=== PATIENT | female | born 1970 | race Caucasian/White ===

== ENCOUNTER 2022-08-09 10:56 | Emergency (ER) | payer MEDICAID ==
[~2022-08-09] VITALS: Ht 167.6 cm; Wt 71.2 kg
[2022-08-09 13:12] VITALS: BP 152/85
[2022-08-09] MEDS ORDERED: AZITTAB PO (15:00)
[2022-08-09] MEDS ORDERED: PROM1SOL4 PO (15:00)
[2022-08-09] MEDS ORDERED: BENZ1LOZ3 MT (15:00)
== END 2022-08-09 15:13 | disposition home or self-care (01) ==
LOC: ER 10:56
DX: J06.9 Acute upper respiratory infection, unspecified (principal); K21.9 Gastro-esophageal reflux disease without esophagitis; E78.5 Hyperlipidemia, unspecified; F17.210 Nicotine dependence, cigarettes, uncomplicated; Z98.51 Tubal ligation status; Z88.6 Allergy status to analgesic agent

== ENCOUNTER 2023-01-08 10:38 | Emergency (ER) | payer MEDICAID ==
[~2023-01-08] VITALS: Ht 167.6 cm; Wt 68.0 kg
[~2023-01-08 10:38] MED LIST: AZITTAB PO; BENZ1LOZ12 MT; PROM1SOL4 PO
[2023-01-08 11:13] VITALS: BP 178/88; PULSE 98; RESP 18; O2SAT 98
[2023-01-08] MEDS ORDERED: PRED20TA2 PO (11:14)
[2023-01-08] MEDS ORDERED: AUG875T PO (11:14)
== END 2023-01-08 11:18 | disposition home or self-care (01) ==
LOC: ER 10:38
DX: J01.90 Acute sinusitis, unspecified (principal); H66.91 Otitis media, unspecified, right ear; F41.9 Anxiety disorder, unspecified; F32.9 Major depressive disorder, single episode, unspecified; K21.9 Gastro-esophageal reflux disease without esophagitis; E78.5 Hyperlipidemia, unspecified; F17.210 Nicotine dependence, cigarettes, uncomplicated; Z98.890 Other specified postprocedural states; Z79.899 Other long term (current) drug therapy

== ENCOUNTER 2023-10-28 18:50 | Emergency (ER) | payer MEDICAID ==
[~2023-10-28] VITALS: Ht 167.6 cm; Wt 76.3 kg
[~2023-10-28 18:50] MED LIST changes: +AUG875T PO; +PRED20TA2 PO
[2023-10-28 21:38] VITALS: BP 151/89; PULSE 91; RESP 16; TEMP 97.9; O2SAT 97
== END 2023-10-28 21:43 | disposition home or self-care (01) ==
LOC: ER 18:58
DX: S80.01XA Contusion of right knee, initial encounter (principal); K21.9 Gastro-esophageal reflux disease without esophagitis; E78.5 Hyperlipidemia, unspecified; F17.210 Nicotine dependence, cigarettes, uncomplicated; R60.0 Localized edema; Z98.51 Tubal ligation status; W18.09XA Striking against other object with subsequent fall, initial encounter; Y93.89 Activity, other specified; Y92.89 Other specified places as the place of occurrence of the external cause; Y99.8 Other external cause status
CPT/HCPCS: 73562

== ENCOUNTER 2023-11-02 20:31 | Inpatient (IN) | payer MEDICAID ==
[~2023-11-02] VITALS: Ht 167.6 cm; Wt 77.5 kg
[2023-11-02] MEDS: ACETAMINOPHEN 325 MG TAB PO ONE (20:53)
[2023-11-02] MEDS: SODIUM CHLORIDE 0.9% 1,000 ML IV ONE (21:08)
[2023-11-02 21:40] LABS: Basophils # (auto) 0 10 ^3/uL (0-0.2); Basophils % (auto) 0.3 % (0.0-2.0); Eosinophils # (auto) 0 10 ^3/uL (0-0.8); Hematocrit 25.5 % (36.0-46.0); Hemoglobin 8.6 g/dL (12.2-16.2); Lymphocytes # (auto) 1.1 10 ^3/uL (0.4-5.4); Lymphocytes % (auto) 25.8 % (10.0-50.0); Mean Corpuscular Hemoglobin 28.9 pg (28.0-32.0); Mean Corpuscular Hgb Conc. 33.6 g/dL (32.0-36.0); Mean Corpuscular Volume 86.1 fL (80.0-100.0); Monocytes # (auto) 0.6 10 ^3/uL (0-1.3); Monocytes % (auto) 14.5 % (0.0-12.0); Neutrophils # (auto) 2.6 10 ^3/uL (1.6-8.6); Neutrophils % (auto) 59.4 % (37.0-80.0); Nucleated Red Blood Cells % 0.1 %; Red Blood Cells 2.96 10^6/uL (4.0-5.20); Red Cell Distribution Width 13.4 % (11.8-14.3); White Blood Cell 4.4 10^3/uL (4.4-10.8)
[2023-11-02 21:55] LABS: Alanine Aminotransferase 22 U/L (7-40); Albumin 3.8 g/dL (3.2-4.8); Alkaline Phosphatase 83 U/L (46-116); Anion Gap 10 (5-15); Aspartate Aminotransferase 16 U/L (13-40); BUN/Creatinine Ratio 10.4 (10.0-20.0); Bilirubin, Total 0.5 mg/dL (0.2-1.0); Blood Urea Nitrogen 10 mg/dL (9-23); Calcium 7.8 mg/dL (8.7-10.4); Carbon Dioxide 23 mmol/L (20-30); Chloride 104 mmol/L (98-107); Glucose 104 mg/dL (74-106); Potassium 3.1 mmol/L (3.5-5.1); Sodium 137 mmol/L (136-145); Total Protein 6.1 g/dL (5.7-8.2)
[2023-11-02 22:34] LABS: Urine Bacteria None Seen /hpf (None Seen)
[2023-11-02 22:56] LABS: Urine Blood Negative /uL (Negative); Urine Clarity Turbid (Clear); Urine Color Light-Yellow (Yellow); Urine Mucus FEW (None Seen); Urine Protein, UAD TRACE (Negative); Urine Specific Gravity 1.018 (1.001-1.035); Urine Urobilinogen Normal (Negative); Urine WBC 392 /hpf (0 - 5)
[2023-11-03] VITALS (7 sets, daily range): BP systolic 113–142; BP diastolic 67–78; PULSE 69–99; RESP 18–20; TEMP 98.4–99; O2SAT 92–98
[2023-11-03] MEDS: cefTRIAXone 1GM/50ML D5W 50 ML IV ONE (01:09)
[2023-11-03] MEDS: IOHEXOL 350 MG/ML 100ML IJ ONE (02:47)
[2023-11-03] MEDS ORDERED: NITROGLYCERIN 0.4 MG SL TAB SL PRN (03:00)
[2023-11-03] MEDS ORDERED: ONDANSETRON HCL 4 MG/2 ML VIAL IV PRN (03:00)
[2023-11-03] MEDS: POTASSIUM CHL 20 Meq TABLET PO ONE ×2 (03:11→09:32)
[2023-11-03] MEDS: HYDROcodone-ACET 5/325MG TAB PO PRN (04:47)
[2023-11-03] MEDS: ACETAMINOPHEN 325 MG TAB PO PRN (08:01)
[2023-11-03 10:13] LABS: Basophils # (auto) 0 10 ^3/uL (0-0.2); Eosinophils # (auto) 0 10 ^3/uL (0-0.8); Eosinophils % (auto) 0.1 % (0.0-7.0); Hemoglobin 8.3 g/dL (12.2-16.2); Lymphocytes # (auto) 1.2 10 ^3/uL (0.4-5.4); Monocytes # (auto) 0.5 10 ^3/uL (0-1.3)
[2023-11-03] MEDS: LACTULOSE 20Gm/30ML SOLN PO STA (10:14)
[2023-11-03 10:18] LABS: Basophils % (auto) 0.6 % (0.0-2.0); Hematocrit 25.1 % (36.0-46.0); Lymphocytes % (auto) 37.7 % (10.0-50.0); Mean Corpuscular Hemoglobin 28.5 pg (28.0-32.0); Mean Corpuscular Hgb Conc. 33.1 g/dL (32.0-36.0); Monocytes % (auto) 14.8 % (0.0-12.0); Neutrophils # (auto) 1.5 10 ^3/uL (1.6-8.6); Neutrophils % (auto) 46.8 % (37.0-80.0); Red Blood Cells 2.92 10^6/uL (4.0-5.20); Red Cell Distribution Width 13.7 % (11.8-14.3); White Blood Cell 3.3 10^3/uL (4.4-10.8)
[2023-11-03 10:34] LABS: % Iron Saturation 10.3 % (15-50)
[2023-11-03 10:36] LABS: Alanine Aminotransferase 26 U/L (7-40); Alkaline Phosphatase 82 U/L (46-116); Anion Gap 8 (5-15); Aspartate Aminotransferase 24 U/L (13-40); Blood Urea Nitrogen 9 mg/dL (9-23); Calcium 8.7 mg/dL (8.7-10.4); Carbon Dioxide 27 mmol/L (20-30); Chloride 103 mmol/L (98-107); Glucose 120 mg/dL (74-106); Magnesium 1.9 mg/dL (1.6-2.6); Potassium 3.7 mmol/L (3.5-5.1); Sodium 138 mmol/L (136-145); Total Protein 5.9 g/dL (5.7-8.2)
[2023-11-03 10:57] LABS: Bilirubin, Total 0.4 mg/dL (0.2-1.0)
[2023-11-03 11:33] LABS: Rapid Influenza A Negative (Negative); Rapid Influenza B Negative (Negative)
[2023-11-03 11:35] LABS: COVID19 ANTIGEN SOFIA FIA POSITIVE (NEGATIVE)
[2023-11-03] MEDS: SODIUM CHLORIDE 0.9% 1,000 ML IV SCH (13:30)
[2023-11-03] MEDS ORDERED: MORPHINE SULFATE INJ 2 MG/ml SYRG IV PRN (13:30)
[2023-11-03] MEDS: MORPHINE SULFATE INJ 2 MG/ml SYRG IV PRN (14:18)
[2023-11-03] MEDS ORDERED: ALPR0.5T PO (15:41)
[2023-11-03] MEDS ORDERED: MAGNTAB17 PO (15:42)
[2023-11-03] MEDS ORDERED: PERCOT PO (15:42)
[2023-11-03] MEDS ORDERED: ENOXAPARIN SOD 40 MG/0.4 ML SYRINGE SC STA (18:32)
[2023-11-03] MEDS: MELATONIN 5 MG TAB PO ONE (22:12)
[2023-11-04 01:07] VITALS: BP 139/56; PULSE 86; RESP 19; TEMP 98.6; O2SAT 95
[2023-11-04] MEDS: cefTRIAXone 1GM/50ML D5W 50 ML IV SCH (01:58)
[2023-11-04 05:00] VITALS: BP 132/80; PULSE 87; TEMP 98.5; O2SAT 90
[2023-11-04 06:38] LABS: Chloride 103 mmol/L (98-107); Potassium 3.9 mmol/L (3.5-5.1); Sodium 136 mmol/L (136-145)
[2023-11-04 06:39] LABS: Anion Gap 7 (5-15); Carbon Dioxide 26 mmol/L (20-30)
[2023-11-04 06:40] LABS: Basophils # (auto) 0 10 ^3/uL (0-0.2); Calcium 8.9 mg/dL (8.7-10.4); Eosinophils # (auto) 0 10 ^3/uL (0-0.8); Eosinophils % (auto) 0.2 % (0.0-7.0); Hemoglobin 8.3 g/dL (12.2-16.2); Lymphocytes # (auto) 0.9 10 ^3/uL (0.4-5.4); Monocytes # (auto) 0.4 10 ^3/uL (0-1.3); Neutrophils # (auto) 1.4 10 ^3/uL (1.6-8.6); White Blood Cell 2.7 10^3/uL (4.4-10.8)
[2023-11-04 06:43] LABS: Basophils % (auto) 0.3 % (0.0-2.0); Hematocrit 24.4 % (36.0-46.0); Lymphocytes % (auto) 32.6 % (10.0-50.0); Mean Corpuscular Hgb Conc. 33.9 g/dL (32.0-36.0); Mean Corpuscular Volume 85.4 fL (80.0-100.0); Monocytes % (auto) 14.6 % (0.0-12.0); Neutrophils % (auto) 52.3 % (37.0-80.0); Nucleated Red Blood Cells % 0.1 %; Red Blood Cells 2.85 10^6/uL (4.0-5.20); Red Cell Distribution Width 13.2 % (11.8-14.3)
[2023-11-04 06:44] LABS: Glucose 96 mg/dL (74-106)
[2023-11-04 06:45] LABS: BUN/Creatinine Ratio 8.8 (10.0-20.0); Blood Urea Nitrogen < 5 mg/dL (9-23)
[2023-11-04 08:05] VITALS: PULSE 90; O2SAT 98
[2023-11-04 08:50] VITALS: BP 119/82; PULSE 94; RESP 17; TEMP 98.7; O2SAT 95
[2023-11-04] MEDS: ENOXAPARIN SOD 40 MG/0.4 ML SYRINGE SC SCH (10:00)
[2023-11-04 13:00] VITALS: BP 117/75; PULSE 83; RESP 18; TEMP 98.5; O2SAT 99
[2023-11-04] MEDS: SODIUM FERR GLUC 62.5MG/5ML 110 ML IV SCH (13:39)
[2023-11-04 17:00] VITALS: BP 128/72; PULSE 85; RESP 18; TEMP 98.8; O2SAT 95
[2023-11-04] MEDS ORDERED: CEPH250C PO (17:56)
== END 2023-11-04 17:50 | disposition home or self-care (01) | DRG 720 ==
LOC: EDBD 20:31 → ER 20:31 → TELE 11-03 02:49 → TELE-WESTW 11-03 14:55
PROVIDERS: ADMIT Internal Medicine Pulmonary Disease; ATTEND Internal Medicine Pulmonary Disease
DX: A41.9 Sepsis, unspecified organism (principal); J96.01 Acute respiratory failure with hypoxia; U07.1 COVID-19; N30.01 Acute cystitis with hematuria; F32.A Depression, unspecified; F41.9 Anxiety disorder, unspecified; K21.9 Gastro-esophageal reflux disease without esophagitis; I10 Essential (primary) hypertension; D50.9 Iron deficiency anemia, unspecified; E87.6 Hypokalemia; E83.51 Hypocalcemia; E78.5 Hyperlipidemia, unspecified; Z79.01 Long term (current) use of anticoagulants; Z79.899 Other long term (current) drug therapy
CPT/HCPCS: 36415; 71045; 71275; 80048; 80053; 81001; 82728; 83540; 83550; 83605; 83735; 84484; 85025; 87040; 87086; 87426; 87804; 96361; 96365; G0378

== ENCOUNTER 2023-12-26 14:27 | Emergency (ER) | payer MEDICAID ==
[~2023-12-26] VITALS: Ht 167.6 cm; Wt 73.1 kg
[~2023-12-26 14:27] MED LIST changes: +ALPR0.5T PO; -AUG875T PO; -AZITTAB PO; -BENZ1LOZ12 MT; +BENZ1LOZ3 MT; +CEPH250C PO; +MAGNTAB17 PO; +PERCOT PO; -PRED20TA2 PO
[2023-12-26 16:25] VITALS: BP 134/77; PULSE 99; RESP 16; TEMP 98; O2SAT 96
== END 2023-12-26 17:50 | disposition home or self-care (01) ==
LOC: ER 14:27
DX: M13.842 Other specified arthritis, left hand (principal); K21.9 Gastro-esophageal reflux disease without esophagitis; F17.210 Nicotine dependence, cigarettes, uncomplicated; Z98.51 Tubal ligation status
CPT/HCPCS: 73130